=== PATIENT | female | born 1970 | race Caucasian/White ===

== ENCOUNTER → 2017-11-30 | Outpatient (CLI) | payer OTHER ==
[~2017-11-30] MED LIST: CLEOCIN HCL150 MG; HYDROCODONE-AP1 EAC6; ZOFRAN ODT4 MG PO
== END ==
LOC: M.CT 11-25 12:25
DX: J45.909 Unspecified asthma, uncomplicated (principal); K21.9 Gastro-esophageal reflux disease without esophagitis; I88.9 Nonspecific lymphadenitis, unspecified; R05 Cough; R09.89 Other specified symptoms and signs involving the circulatory and respiratory systems; R49.0 Dysphonia; R13.10 Dysphagia, unspecified; Z72.0 Tobacco use; Z90.89 Acquired absence of other organs

== ENCOUNTER → 2018-12-23 | Outpatient (CLI) | payer OTHER ==
[2018-12-23 16:54] LABS: ABSOLUTE EOSINOPHILS 0.2 thou/uL (0.0-0.7); ABSOLUTE LYMPHOCYTES 2.7 thou/uL (0.8-5.3); ABSOLUTE MONOCYTES 0.8 thou/uL (0.0-1.2); ABSOLUTE NEUTROPHILS 4.7 thou/uL (1.6-8.1); BASOPHILS 0.5 %; EOSINOPHILS 2.7 %; HEMATOCRIT 38.8 % (37.0-47.0); HEMOGLOBIN 12.7 gm/dL (12.0-15.0); MCHC 32.7 g/dL (28.0-37.0); MCV 88.8 fL (80.0-100.0); MONOCYTES 9.9 %; MPV 6.9 fl. (7.2-11.1); NUCLEATED RBCS 0 /100WBC; PLATELET COUNT* 355 thou/uL (150-400); POLYS 54.9 %; RBC 4.36 mil/uL (4.20-5.00); RDW-CV 12.8 % (10.5-14.5); WBC 8.5 thou/uL (4.0-11.0)
[2018-12-23 17:10] LABS: ALBUMIN 3.9 g/dL (3.4-5.0); ALKALINE PHOSPHATASE 91 U/L (46-116); ANION GAP 5 mmol/L (7-16); BUN 15 mg/dL (7-18); CALCIUM 9.1 mg/dL (8.5-10.1); CHLORIDE 102 mmol/L (98-107); CHOLESTEROL 137 mg/dL (<200); CO2 31 mmol/L (21-32); CREATININE 0.8 mg/dL (0.6-1.3); GLUCOSE 90 mg/dL (70-99); HDL CHOLESTEROL 52 mg/dL (>40); LDL CHOLESTEROL 63 mg/dL (<100); POTASSIUM 3.5 mmol/L (3.5-5.1); SGOT 18 U/L (15-37); SGPT 22 U/L (30-65); SODIUM 138 mmol/L (136-145); TC:HDL 2.6 Ratio (Not establshd); TOTAL BILIRUBIN 0.3 mg/dL (<0.1-1.0); TOTAL PROTEIN 7.6 g/dL (6.4-8.2); TRIGLYCERIDE 110 mg/dL (<150); VLDL 22 mg/dL (<40)
[2018-12-23 17:19] LABS: SERUM ASSESSMENT CLEAR
[2018-12-23 18:03] LABS: ESR (SEDRATE) 10 mm/hr (0-20)
[2018-12-24 02:10] LABS: GLYCOHEMOGLOBIN (HGB A1C) 5.6 % (4.8-5.6)
[2018-12-24 13:12] LABS: ANA INTERPRETATION Positive (Negative)
== END ==
LOC: M.LAB 16:15
PROVIDERS: Internal Medicine
DX: M25.521 Pain in right elbow (principal); G56.03 Carpal tunnel syndrome, bilateral upper limbs; R13.10 Dysphagia, unspecified; N95.1 Menopausal and female climacteric states

== ENCOUNTER 2020-06-22 08:09 | Observation (INO) | payer OTHER ==
[~2020-06-22] VITALS: Ht 157.5 cm; Wt 79.8 kg
[2020-06-22 08:13] VITALS: BP 144/84
[2020-06-22 08:34] LABS: ABSOLUTE EOSINOPHILS 0.2 thou/uL (0.0-0.7); ABSOLUTE LYMPHOCYTES 2.9 thou/uL (0.8-5.3); ABSOLUTE MONOCYTES 0.8 thou/uL (0.0-1.2); ABSOLUTE NEUTROPHILS 3.2 thou/uL (1.6-8.1); BASOPHILS 0.6 %; EOSINOPHILS 2.5 %; HEMATOCRIT 38.9 % (37.0-47.0); HEMOGLOBIN 12.8 gm/dL (12.0-15.0); LYMPHOCYTES 41.3 %; MCH 28.1 pg (26.0-34.0); MCHC 32.9 g/dL (28.0-37.0); MCV 85.4 fL (80.0-100.0); MONOCYTES 11.2 %; MPV 6.7 fl. (7.2-11.1); NUCLEATED RBCS 0 /100WBC; PLATELET COUNT* 356 thou/uL (150-400); POLYS 44.4 %; RBC 4.56 mil/uL (4.20-5.00); RDW-CV 12.7 % (10.5-14.5); WBC 7.1 thou/uL (4.0-11.0)
[2020-06-22 08:39] LABS: CREATININE 0.8 mg/dL (0.6-1.3); POTASSIUM 3.7 mmol/L (3.5-5.1); PROTIME 10.3 Seconds (9.20-11.50)
[2020-06-22 08:49] LABS: ALBUMIN 3.6 g/dL (3.4-5.0); MAGNESIUM 2.1 mg/dL (1.8-2.4); TOTAL BILIRUBIN 0.4 mg/dL (<0.1-1.0); TOTAL PROTEIN 7.4 g/dL (6.4-8.2)
[2020-06-22] MEDS ORDERED: NITROGLYCERIN0.4 MG SUBLING (09:56)
[2020-06-22] MEDS ORDERED: OMEPRAZOLE40 MG PO (09:56)
[2020-06-22 10:04] VITALS: BP 127/87
[2020-06-22 10:15] VITALS: BP 129/78
[2020-06-22 11:00] VITALS: BP 136/81
--- NOTE | 2020-06-22 12:46 | 2DMMODE ---
[place] [address] 2 D/M-MODE ECHOCARDIOGRAM Name: SOFYA MADERA Room: [address] M.R.#: [id number] Admission: 06/22/20 Attend Phys: Bhanu Lemon, Discharge: Date of : 74 Date of Service: 06/22/20 1246 Report #: [id number] THIS REPORT FOR: cc: River Mcneil MD, Meng MD Blick, David R. MD [facility] ~ APPROVED REPORT Study performed: 06/22/2020 11:05:47 EXAM: Comprehensive 2D, Doppler, and color-flow Echocardiogram Patient Location: In-Patient Room #: [facility] [place] [facility] [place] Status: routine BSA: 1.81 HR: 74 bpm BP: 127/87 mmHg Rhythm: NSR Other Information Study Quality: Good Indications Chest Pain 2D Dimensions IVSd: 7.27 (7-11mm) LVOT Diam: 20.51 (18-24mm) LVDd: 40.03 mm PWd: 8.09 (7-11mm) Ascending Ao: 30.63 (22-36mm) LVDs: 27.68 (25-40mm) Aortic Root: 34.97 mm Volumes Left Atrial Volume (Systole) LA ESV Index: 14.50 mL/m2 Aortic Valve AoV Peak Fili.: 1.20 m/s AO Peak Gr.: 5.74 mmHg LVOT Max P.75 mmHg AO Mean Gr.: 3.25 mmHg LVOT Mean P.63 mmHg LVOT Max V: 0.97 m/s AO V2 VTI: 20.84 cm LVOT Mean V: 0.57 m/s JOSHUA (VTI): 3.12 cm2 LVOT V1 VTI: 19.65 [place] [address] 2 D/M-MODE ECHOCARDIOGRAM Name: SOFYA MADERA Room: [address] M.R.#: [id number] Admission: 06/22/20 Attend Phys: Bhanu Lemon, Discharge: Date of : 74 Date of Service: 06/22/20 1246 Report #: [id number] Mitral Valve E/A Ratio: 1.33 MV Decel. Time: 234.13 ms MV E Max Fili.: 0.71 m/s MV PHT: 67.90 ms MVA (PHT): 3.24 cm2 TDI E/Lateral E': 3.94 E/Medial E': 4.18 Medial E' Fili.: 0.17 m/s Lateral E' Fili.: 0.18 m/s Pulmonary Valve PV Peak Fili.: 0.78 m/s PV Peak Gr.: 2.45 mmHg Tricuspid Valve RAP Estimate: 5.00 mmHg TR Peak Gr.: 24.22 mmHg RVSP: 29.00 mmHg PA Pressure: 29.00 mmHg Left Ventricle The left ventricle is normal size. There is normal LV segmental wall motion. There is normal left ventricular wall thickness. Left ventricular systolic function is borderline. LVEF is 50-55%. The left ventricular diastolic function is normal. Right Ventricle The right ventricle is normal size. The right ventricular systolic function is normal. Atria The left atrium size is normal. The right atrium size is normal. Aortic Valve The aortic valve is normal in structure. No aortic regurgitation is present. There is no aortic valvular stenosis. Mitral Valve The mitral valve is normal in structure. There is no mitral valve regurgitation noted. No evidence of mitral valve stenosis. Tricuspid Valve The tricuspid valve is normal in structure. Mild tricuspid regurgitation. [place] [address] 2 D/M-MODE ECHOCARDIOGRAM Name: SOFYA MADERA [address]#: [id number] Admission: 06/22/20 Attend Phys: Bhanu Lemon, Discharge: Date of : 74 Date of Service: 06/22/20 1246 Report #: [id number] Pulmonic Valve The pulmonary valve is normal in structure. There is no pulmonic valvular regurgitation. Great Vessels The aortic root is normal in size. IVC is normal in size and collapses >50% with inspiration. Pericardium There is no pericardial effusion. <Conclusion> Left ventricular systolic function is borderline. LVEF is 50-55%. <ELECTRONICALLY SIGNED> By: Christophe Morfin MD, FACC 06/22/20 1246 1246 1246 Christophe Morfin MD, FACC /INF
[2020-06-22 16:00] VITALS: BP 143/85
--- NOTE | 2020-06-22 17:59 | CARDNUC ---
[place] [address] CARDIAC NUCLEAR IMAGING REPORT Name: SOFYA MADERA Room: [address] M.R.#: [id number] Admission: 06/22/20 Attend Phys: Bhanu Lemon, Discharge: Date of : 74 Date of Service: 06/22/20 1759 Report #: [id number] THIS REPORT FOR: cc: River Mcneil MD, Meng MD Liston, Michael J. MD [facility] ~ APPROVED REPORT Study performed: 06/22/2020 14:12:54 Exam: Nuclear Stress Test Indication: Chest pain Patient Location: In-Patient Room #: [facility] Stress Tech: Deja Melgoza Stress Nurse: Estephania Irizarry RN Ht: 5 ft 2 in Wt: 176 lbs BSA: 1.81 m2 BMI: 32.18 Medical History Medical History: Arrhythmia Medications: none Allergies: morphine, metazatone, promethazine, penicillin, latex Cardiac Risk Factors: none Previous Cardiac Procedures: ablation Exercise History: Physically active Stress Test Details Stress Test: Exercise stress testing was performed using a Shawn protocol. HR Resting HR: 78 bpm Max Heart Rate (APMHR): 172 bpm Max HR Achieved: 158 bpm Target HR (85% APMHR): 146 bpm % of APMHR: 91 Recovery HR: 96 bpm BP Resting BP: 125/86 mmHg Max BP: 189/82 mmHg ECG Resting ECG: [place] [address] CARDIAC NUCLEAR IMAGING REPORT Name: SOFYA MADERA Room: [address] Destiny Nunez#: [id number] Admission: 06/22/20 Attend Phys: Bhanu Lemon, Discharge: Date of : 74 Date of Service: 06/22/20 1759 Report #: [id number] Stress ECG: Sinus Tachycardia ST Change: None Arrhythmia: None Recovery ECG: Sinus Rhythm Recovery ST Change: None Recovery Arrhythmia: None Clinical Reason for Termination: Dyspnea Exercise duration: 5 min 54 sec Exercise capacity: 7.05 METs Functional Aerobic Impairment 92% The patient tolerated the walking Lexiscan protocol without significant cardiac symptoms. Nurse Comments zofran 4 mg ivp for co nausea. fentanyl 50 mg ivp for co headache Stress ECG Conclusion The baseline twelve-lead EKG shows sinus rhythm without significant ST segment or T wave abnormality. EKGs obtained during walking Lexiscan protocol show sinus rhythm and sinus tachycardia with no significant ST segment or T wave changes when compared to baseline. There were no stress-induced arrhythmias. NM EXAM: Myocardial Perfusion REST/STRESS Resting Data Rest SPECT myocardial perfusion imaging was performed in supine position 30 minutes following the intravenous injection of 10.9 mCi of Tc-99m Sestamibi. Time of rest injection: 11:50 The images were gated to evaluate regional wall motion and calculate left ventricular ejection fraction. Administration Route: IV Administration Site: Left AC Exercise Stress At peak stress, the patient was injected intravenously with 32.8mCi of Tc-99m Sestamibi. Time of stress injection: 14:20 Administration Route: IV Administration Site: Left AC Heart Rate at time of stress injection: 158 bpm. Patient continued to exercise for 1 minute([place]). [place] [address] CARDIAC NUCLEAR IMAGING REPORT Name: SOFYA MADERA Room: [address]R.#: [id number] Admission: 06/22/20 Attend Phys: Bhanu Lemon, Discharge: Date of : 74 Date of Service: 06/22/20 1759 Report #: [id number] Gated Stress SPECT was performed 30 minutes after stress injection. The images were gated to evaluate regional wall motion and calculate left ventricular ejection fraction. Prone imaging was performed. Study Quality Study: Good Artifact: No artifact Study Data At rest, the left ventricular ejection fraction was 72%.. Post stress, the left ventricular ejection was 65%.. TID = 1.00. Perfusion Perfusion images obtained at rest and post walking Lexiscan stress show uniform uptake of the radioisotope throughout the myocardium. There were no defects to suggest infarct or ischemia. Wall Motion Normal left ventricular wall motion. Nuclear Conclusion ECG Findings: negative for ischemia Clinical Findings: negative for ischemia Nuclear Findings: negative for ischemia Exercise Capacity: not assessed Left Ventricular Function: normal Risk Study: low Myocardial perfusion images show no defect to suggest infarct or ischemia. Left ventricular systolic function appears normal and gated studies. This is a low risk study. <Conclusion> The baseline twelve-lead EKG shows sinus rhythm without significant ST segment or T wave abnormality. EKGs obtained during walking Lexiscan protocol show sinus rhythm and sinus tachycardia with no significant ST segment or T wave changes when compared to baseline. There were no stress-induced arrhythmias. <ELECTRONICALLY SIGNED> By: Simeon Vogt MD, FACC 06/22/201758 58 58 Simeon Vogt MD, FACC /INF
--- NOTE | 2020-06-22 18:14 | EKG ---
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
--- NOTE | 2020-06-22 18:48 | CON ---
[address] [address] CONSULTATION Name: SOFYA MADERA Room: [address] M.R.#: [id number] Admission: 06/22/20 Attend Phys: Bhanu Lemon MD Discharge: Date of : 74 Report #: [id number] THIS REPORT FOR: cc: River Mcneil MD, Meng MD ~ Simeon Vogt MD [facility] DATE OF SERVICE: 06/22/2020 INDICATION: Chest pressure, tightness and pain. HISTORY OF PRESENT ILLNESS: The patient is a 50-year-old white female whose only prior cardiac history is of SVT, status post ablation 18 years ago. She has borderline hypertension. There is no history of dyslipidemia, family history of coronary artery disease, diabetes or tobacco use. The patient states since 7 a.m. this morning while arriving for work, she had sudden onset chest pressure and severe tightness, especially in the upper chest and neck region that was relentless. The pain did not radiate beyond the throat region. There was some mild diaphoresis associated with the discomfort. She was not having any shortness of breath. There was no inciting activity. There was no relieving activity. The patient was brought to the Emergency Room for evaluation. A 12-lead EKG showed sinus rhythm without acute ST-segment abnormality. The patient received aspirin and sublingual nitroglycerin. She had prompt improvement in her symptoms with sublingual nitroglycerin. The discomfort has waxed and waned since. She had a GI cocktail as well. She had Zofran for some associated nausea. She has had no vomiting. PAST MEDICAL HISTORY: 1. Borderline hypertension. 2. Tonsillectomy and adenoidectomy. 3. Appendectomy. 4. Ablation for SVT. 5. Uterine ablation. 6. Upper endoscopy with dilation without significant GERD. ALLERGIES: MORPHINE, PHENERGAN, PENICILLIN, AND LATEX. CURRENT MEDICATIONS: None. SOCIAL HISTORY: The patient is . She is not a smoker. She does not drink alcohol. FAMILY HISTORY: [place] [address] CONSULTATION Name: SOFYA MADERA Room: [address] Mayra#: [id number] Admission: 06/22/20 Attend Phys: Bhanu Lemon MD Discharge: Date of : 74 Report #: [id number] REVIEW OF SYSTEMS: A 14-point review of systems as per HPI, otherwise unremarkable. PHYSICAL EXAMINATION: VITAL SIGNS: Stable. Blood pressure 122/84, pulse is 87 and regular. GENERAL: This is a thin, pleasant white female, in xyih-oh-cmpxnfhm distress. HEENT: Extraocular muscles intact. Mucous membranes are moist. NECK: Shows no jugular venous distention. There are no carotid bruits. CHEST: Reveals clear lung leos. CARDIOVASCULAR: Reveals a regular rhythm with normal S1 and S2. I do not appreciate gallop or murmur. ABDOMEN: Reveals normal bowel sounds. The abdomen is soft, nontender. EXTREMITIES: Shows no edema. Peripheral pulses are 2+ and easily palpable. SKIN: Dry. DIAGNOSTIC DATA: A 12-lead EKG shows sinus rhythm without acute ST segment or T-wave abnormality. Labs are reviewed. White blood cell count 7.1, hemoglobin 12.8, platelet count 356,000. Sodium 141, potassium 3.7, chloride 104, bicarbonate 27, BUN 17, creatinine 0.8, serum glucose 104. EGFR 77. LFTs are within normal limits. Initial troponin less than 0.06. NT-proBNP 65. Chest x-ray pending. IMPRESSION AND RECOMMENDATIONS: 1. Acute onset chest discomfort. Symptoms significantly improved with sublingual nitroglycerin. Initial troponin is unremarkable. EKG was unremarkable. I suspect this may be esophageal in nature. She did receive a GI cocktail. 2. Pursue further cardiac workup, would recommend echocardiogram at this time. Consider noninvasive stress testing with followup troponin. 3. Borderline hypertension. Blood pressure appears relatively stable after nitroglycerin at this time. We will initiate medications as needed. <ELECTRONICALLY SIGNED> By: Simeon Vogt MD, FACC 06/22/20 [id number] Vogt MD, FACC /nt
[2020-06-22 20:00] VITALS: BP 118/76; BP 140/64
[2020-06-23 04:12] VITALS: BP 96/60
[2020-06-23] MEDS ORDERED: BENTYL 10 MG CA10 MG PO (08:14)
[2020-06-23 08:16] VITALS: BP 128/86
[2020-06-23 10:14] VITALS: BP 127/87
== END 2020-06-23 10:55 | disposition home or self-care (01) ==
LOC: M.ERS 08:09 → M.TBA-ER 08:57 → M.2W 08:57
PROVIDERS: Emergency Medicine Emergency Medical Services; ADMIT Internal Medicine; ATTEND Internal Medicine
DX: R07.89 Other chest pain (principal); K22.4 Dyskinesia of esophagus; K44.9 Diaphragmatic hernia without obstruction or gangrene; L30.9 Dermatitis, unspecified; I47.1 Supraventricular tachycardia; I25.2 Old myocardial infarction; F17.200 Nicotine dependence, unspecified, uncomplicated; Z79.899 Other long term (current) drug therapy; Z20.828 Contact with and (suspected) exposure to other viral communicable diseases

== ENCOUNTER → 2021-06-24 | Outpatient (CLI) | payer OTHER ==
[~2021-06-24] MED LIST changes: +BENTYL 10 MG CA10 MG PO; +NITROGLYCERIN0.4 MG SUBLING; +OMEPRAZOLE40 MG PO
[2021-06-24 15:24] LABS: ABSOLUTE EOSINOPHILS 0.2 thou/uL (0.0-0.7); ABSOLUTE LYMPHOCYTES 3.4 thou/uL (0.8-5.3); ABSOLUTE MONOCYTES 1.1 thou/uL (0.0-1.2); ABSOLUTE NEUTROPHILS 5.1 thou/uL (1.6-8.1); BASOPHILS 0.4 %; EOSINOPHILS 2.5 %; HEMATOCRIT 41.5 % (37.0-47.0); HEMOGLOBIN 13.9 gm/dL (12.0-15.0); LYMPHOCYTES 34.5 %; MCHC 33.5 g/dL (28.0-37.0); MCV 86.6 fL (80.0-100.0); MONOCYTES 11.1 %; MPV 6.8 fl. (7.2-11.1); NUCLEATED RBCS 0 /100WBC; PLATELET COUNT* 405 thou/uL (150-400); POLYS 51.5 %; RDW-CV 12.4 % (10.5-14.5)
[2021-06-24 15:50] LABS: ALBUMIN 4.2 g/dL (3.4-5.0); CALCIUM 9.3 mg/dL (8.5-10.1); CREATININE 0.9 mg/dL (0.6-1.3); DIRECT BILIRUBIN 0.1 mg/dL (<0.1-0.3); TOTAL BILIRUBIN 0.5 mg/dL (<0.1-1.0); TOTAL PROTEIN 8.2 g/dL (6.4-8.2)
[2021-06-24 16:03] LABS: POTASSIUM 2.9 mmol/L (3.5-5.1)
[2021-06-26 07:35] LABS: GLYCOHEMOGLOBIN (HGB A1C) 5.8 % (4.8-5.6)
[2021-06-26 21:06] LABS: ANA INTERPRETATION Positive (())
== END ==
LOC: M.LAB 09:25
PROVIDERS: ATTEND Registered Nurse Diabetes Educator
DX: J98.4 Other disorders of lung (principal); J94.8 Other specified pleural conditions; R53.83 Other fatigue; M25.50 Pain in unspecified joint; R63.5 Abnormal weight gain; R06.02 Shortness of breath; Z79.899 Other long term (current) drug therapy

== ENCOUNTER → 2021-06-28 | Outpatient (CLI) | payer OTHER ==
[2021-06-28 16:29] LABS: CALCIUM 9.1 mg/dL (8.5-10.1); CREATININE 0.8 mg/dL (0.6-1.3); POTASSIUM 3.8 mmol/L (3.5-5.1)
== END ==
LOC: M.LAB 15:54
PROVIDERS: ATTEND Registered Nurse Diabetes Educator
DX: E87.6 Hypokalemia (principal); R60.0 Localized edema; R76.8 Other specified abnormal immunological findings in serum; M25.50 Pain in unspecified joint; R21 Rash and other nonspecific skin eruption; Z79.899 Other long term (current) drug therapy